=== PATIENT | female | born 2000 | race African-American/Black ===

== ENCOUNTER 2022-10-08 08:44 | Emergency (ER) | payer OTHER ==
[~2022-10-08] VITALS: Ht 165.1 cm; Wt 69.4 kg
[2022-10-08] MEDS ORDERED: PSYL0.4C2 MT (10:40)
[2022-10-08] MEDS ORDERED: PHEN51CR24 TP (10:40)
[2022-10-08 11:20] VITALS: BP 124/82
== END 2022-10-08 11:21 | disposition home or self-care (01) ==
LOC: ER 08:44
DX: K64.4 Residual hemorrhoidal skin tags (principal); J45.909 Unspecified asthma, uncomplicated
CPT/HCPCS: 99282